=== PATIENT | female | born 1995 | race Caucasian/White ===

== ENCOUNTER 2023-12-16 18:16 | Emergency (ER) | payer BC, SELFPAY ==
[2023-12-16 18:30] VITALS: BP 161/83; PULSE 73; RESP 20; TEMP 37.2; O2SAT 100
--- NOTE | 2023-12-16 18:46 | ED.DENTAL ---
HPI - Dental/Oral General Chief complaint: Dental/Oral Stated complaint: FB stuck on back of tongue Time Seen by Provider: 12/16/23 18:46 History of Present Illness HPI Narrative: 28-year-old female presented for complaint of concern for something on the back of my tongue. First noticed yesterday. States she can feel it. Pt provided a photo with a smooth tongue-colored raised area to the tongue. Denies sore throat, difficulty swallowing or painful swallow, nausea, vomiting, diarrhea, fevers or chills. Related Data Home Medications Medication Instructions Recorded Confirmed etonogestrel 0.12 mg-ethinyl vag ring vaginal 12/16/23 estradiol 0.015 mg/24 hr vaginal ring (NuvaRing) Allergies Allergy/AdvReac Type Severity Reaction Status Date / Time Sulfa (Sulfonamide Allergy Unknown Verified 12/16/23 18:32 Antibiotics) Review of Systems Review of Systems: CONSTITUTIONAL: Denies body aches, fever, chills, or sweats. EYES: Denies visual changes, redness, or discharge. ENT: Denies rhinorrhea, congestion, or otalgia. CARDIOVASCULAR: Denies chest pain, palpitations, or edema. RESPIRATORY: Denies dyspnea. GASTROINTESTINAL: Denies abdominal pain, nausea, vomiting, or diarrhea. MUSCULOSKELETAL: Denies back pain, joint pain, or myalgia. NEUROLOGIC: Denies headache Exam Narrative: GENERAL: well-appearing, no acute distress. EYES: conjunctivae clear ENT: Mucous membranes moist. TMs pearly puga with normal light reflex bilaterally; no tragal tenderness. Oropharynx not erythematous, without lesions. Tonsils not enlarged and without exudate. Unable to visualize the concerning lesion from the picture provided. No drooling, no hoarseness, no trismus, uvula midline. No tripod positioning, hot potato voice, or soft palate swelling. NECK: Supple. No lymphadenopathy CHEST: No respiratory distress, speaks in full sentences. SKIN: Warm, dry, no rash. NEURO: Alert and oriented x3. Course Course Emergency Course: Patient is aware of diagnosis, understands and agrees to treatment plan. Anticipatory guidance given. Patient agrees to follow-up as directed and is aware of reasons to seek care at the emergency department. Portions of this record may have been created with voice recognition software Level of Care: Express [facility] Visit Vital Signs Vital signs: Vital Signs Temperature 98.9 F 12/16/23 18:30 Pulse Rate 73 12/16/23 18:30 Respiratory Rate 20 12/16/23 18:30 Blood Pressure 161/83 H 12/16/23 18:30 Pulse Oximetry 100 12/16/23 18:30 Oxygen Delivery Room Air 12/16/23 18:30 Temperature 98.9 F 12/16/23 18:30 Pulse Rate 73 12/16/23 18:30 Respiratory Rate 20 12/16/23 18:30 Blood Pressure 161/83 H 12/16/23 18:30 Pulse Oximetry 100 12/16/23 18:30 Oxygen Delivery Room Air 12/16/23 18:30 MDM - Dental/Oral MDM Narrative Medical decision making narrative: Discussed physical exam findings, unable to visualize her concerning lesion on exam. Attempted to provide reassurance. Advised supportive measures and signs/symptoms to go to the ER. Pt is appropriate for outpt treatment and f/u with pcp. Differential Diagnosis Differential diagnosis: Likely gingival abscess, aphthous ulcer and other (tongue lesion) Discharge Plan Discharge Clinical Impression: Normal oral exam Patient Disposition: Home, Self-Care Condition: Stable Instructions: Antibiotic Form, Pharyngitis (ED) Additional Instructions: your throat exam looks normal today. Recommend following up with your primary care provider and/or ENT or GI specialist. -Go to the ER if you have trouble breathing, cannot drink enough fluids, have muffled voice or drooling, difficulty opening your mouth, or severe swelling. Prescriptions: No Action etonogestrel-ethinyl estradiol [NuvaRing] 0.12-0.015 mg/24 hr ring VAGINAL Follow-up/Referrals: Gage,Zully Martinez MD [Primary Care Provider]
== END 2023-12-16 19:07 | disposition home or self-care (01) ==
PROVIDERS: Emergency Provider Nurse Practitioner Family; PCP Family Medicine
DX: R09.A9 Foreign body sensation, other site (principal)
CPT/HCPCS: 99211; G0463

== ENCOUNTER 2023-12-21 12:25 | Emergency (ER) | payer BC, SELFPAY ==
[2023-12-21 12:36] VITALS: BP 152/85; PULSE 70; RESP 16; TEMP 36.5; O2SAT 100
--- NOTE | 2023-12-21 12:54 | ED.EYEPROB ---
HPI - Eye Problem General Chief complaint: Eye Problems Stated complaint: possible pink eye Time Seen by Provider: 12/21/23 12:54 Source: patient, RN notes reviewed and old records reviewed Mode of arrival: ambulatory Limitations: no limitations History of Present Illness HPI Narrative: 28-year-old to [facility] for complaint of eye redness, irritation for 1 week. Patient states that she treated at home with [id number] eye drops with improvement. Patient started wearing contacts again 3 days ago and had sudden increase in pain, tearing, and redness. Patient denies any recent illness or exposure to illness. Patient endorses some blurred vision or due to excessive tearing. Related Data Home Medications Medication Instructions Recorded Confirmed etonogestrel 0.12 mg-ethinyl 1 vag ring vaginal MONTHLY 12/16/23 12/21/23 estradiol 0.015 mg/24 hr vaginal ring (NuvaRing) Allergies Allergy/AdvReac Type Severity Reaction Status Date / Time Sulfa (Sulfonamide Allergy Intermediate Rash Verified 12/21/23 12:58 Antibiotics) Review of Systems Review of Systems: All systems reviewed & are unremarkable except as noted in HPI and below Constitutional: Constitutional: Reports as per HPI and Denies fever(s) Eyes: Eyes: Reports as per HPI, Reports blurry vision, Denies change in vision, Reports eye discharge, Reports irritation, Denies loss of vision and Reports photophobia ENT: Reports system reviewed and no additional complaints, except as documented Cardiovascular: Cardiovascular: Reports no additional cardiovascular complaints, Denies chest pain and Denies dyspnea Respiratory: Respiratory: Reports no additional respiratory complaints, Denies cough and Denies dyspnea Musculoskeletal: Musculoskeletal: Reports no additional musculoskeletal complaints Neurologic: Reports system reviewed and no additional complaints, except as documented Psychiatric: Psychiatric: Reports no additional psychiatric complaints PMFSH Comments At the time of my signature, I reviewed and agree with the nursing past medical, surgical, social, and family history. There is no relevant family history pertinent to the patient complaint. Exam Const: General: cooperative, healthy appearing, no acute distress, alert, uncomfortable and well nourished Nutritional Appearance: well nourished Orientation/consciousness: patient oriented x3 Limitations: no limitations HENMT: Head: normal to inspection Ears: external ears normal Face/Nose/Sinus: Normal external nose present, Normal nares present, normal facial exam, No erythema and No edema Face and sinus: normal facial exam, no erythema and no edema Mouth: Yes Normal oral and palatal mucosa present Eyes: General: appearance normal, both eyes and all related structures Alignment and Position: alignment normal and position normal Eyelids: eyelid abnormality left upper eyelid erythema and left lower eyelid erythema Conjunctivae: conjunctival abnormality left conjunctival injection diffuse Sclera: scleral abnormality left scleral injection diffuse Cornea: corneas normal and fluorescein used Pupils: Equal, round and reactive pupils present Direct Ophthalmoscopy: normal light reflex, photophobia and No retinal abnormality Neck: Neck: normal visual inspection, full ROM and no meningeal signs Lymphatic: no lymphadenopathy noted and no lymphedema noted Chest: Chest palpation & inspection: normal inspection of the chest Resp: Effort & Inspection: normal respiratory effort and able to speak in complete sentences Auscultation: clear to auscultation bilaterally Cardio: Jugular venous distension: no JVD Rate: regular rate Rhythm: regular rhythm Back/Spine/Pelvis: Cervical Spine: cervical ROM normal Skin: General skin exam: normal color, no rashes or lesions noted and turgor normal Neuro: General: patient oriented x3, gait normal, moves all extremities and no meningeal signs Speech: normal sp
== END 2023-12-21 13:45 | disposition home or self-care (01) ==
PROVIDERS: Emergency Provider Nurse Practitioner Family; PCP Family Medicine
DX: H10.89 Other conjunctivitis (principal)
CPT/HCPCS: 99213; A9270; G0463